=== PATIENT | male | born 1960 | race African-American/Black ===

== ENCOUNTER 2024-03-24 18:32 | Inpatient (IN) | payer BC, MEDICAID, MEDICARE ==
[~2024-03-24] VITALS: Ht 177.8 cm; Wt 102.3 kg
[2024-03-24] MEDS ORDERED: PIPERACILLIN/TAZO 3.375G/50ML 50 ML IV ONE (19:00)
[2024-03-24] MEDS ORDERED: VANCOMYCIN 1G PREMIX 200 ML IV ONE (19:00)
[2024-03-24 19:20] VITALS: RESP 25
[2024-03-24] MEDS: SODIUM CHLORIDE 0.9% (SEPSIS BOLUS) IV ONE (19:27)
[2024-03-24] MEDS ORDERED: NOREPINEPHRINE 8MG/250ML PMX 250 ML IV ONE (19:28)
[2024-03-24 19:30] VITALS: PULSE 75; RESP 18; O2SAT 100
[2024-03-24] MEDS: PROPOFOL 10MG/ML 100ML 100 ML IV STA (20:04)
[2024-03-24] MEDS: NOREPINEPHRINE 8MG/250ML PMX 250 ML IV ONE (20:16)
[2024-03-24 20:23] LABS: HEMOGLOBIN. 15.2 g/dL (14.0-18.0); MEAN CORPUSCULAR HGB CONC 31.7 g/dL (31.0-37.0); MEAN CORPUSCULAR VOLUME 91.6 fL (80.0-94.0); MEAN PLATELET VOLUME 8.6 fl (7.4-10.4); PLATELET 94 x1000/uL (130-400); RED BLOOD CELL COUNT 5.24 mill/uL (4.7-6.1); WHITE BLOOD COUNT 7.3 x1000/uL (4.5-11.0)
[2024-03-24 20:25] LABS: DIFFERENTIAL COMMENT 1
[2024-03-24 20:37] LABS: CHLORIDE 93 mEq/L (98-107); POTASSIUM 5.5 mEq/L (3.5-5.1); SODIUM 132 mEq/L (136-145)
[2024-03-24] MEDS: PIPERACILLIN/TAZO 3.375G/50ML 50 ML IV NR (20:37)
[2024-03-24 20:39] LABS: CALCIUM 7.4 mg/dL (8.7-10.4); CARBON DIOXIDE 25 mEq/L (21-32)
[2024-03-24 20:40] LABS: NUCLEATED RED BLOOD CELLS 5 /100 WBC; PLATELET ESTIMATE SLIGHTLY DECREASED
[2024-03-24 20:44] LABS: GLUCOSE 97 mg/dL (70-105); UREA NITROGEN BLOOD 64 mg/dL (9-23)
[2024-03-24 20:45] LABS: CLARITY URINE TURBID (CLEAR); COLOR URINE DARK YELLOW (YELLOW); GLUCOSE URINE NEGATIVE (NEGATIVE); KETONES URINE NEGATIVE (NEGATIVE); LEUKOCYTE ESTERASE URINE 1+ (NEGATIVE); NITRITE URINE POSITIVE (NEGATIVE); OCCULT BLOOD URINE 1+ (NEGATIVE); PROTEIN URINE 3+ (NEGATIVE)
[2024-03-24 20:46] LABS: ALBUMIN 3.3 g/dL (3.2-4.8); BILIRUBIN DIRECT 2.4 mg/dL (<=3.0); BILIRUBIN TOTAL 3.9 mg/dL (0.1-1.0); PROTEIN TOTAL 5.9 g/dL (6.0-8.3)
[2024-03-24 20:53] LABS: BACTERIA URINE TRACE; HYALINE CASTS URINE 0-5 /lpf; SQUAMOUS EPITHELIAL CELL URINE 1+ /lpf (RARE/1+)
[2024-03-24 20:58] LABS: ALANINE AMINOTRANSFERASE 1562 IU/L (10-49); ASPARTATE AMINOTRANSFERASE 2020 IU/L (<34)
[2024-03-24] MEDS ORDERED: MIDAZOLAM 100MG/100ML PMX 100 ML IV STA (20:58)
[2024-03-24] MEDS ORDERED: FENTANYL 2500MCG/250ML PMX 250 ML IV ONE (21:00)
[2024-03-24 21:15] VITALS: PULSE 74; RESP 18; O2SAT 100
[2024-03-24 21:20] LABS: CREATININE 5.5 mg/dL (0.6-1.3); TROPONIN I HIGH SENSITIVITY 444 ng/L (3.0-53)
[2024-03-24] MEDS: VANCOMYCIN 1GM PMX (XELLIA) 200 ML IV NR (21:27)
[2024-03-24 21:55] LABS: BG BASE EXCESS -4.3 mmol/L (-2.0-3.0); BG DEOXYHEMOGLOBIN 0.7 % (0.0-5.0); BG FRACTION INSPIRED OXYGEN 100; BG METHEMOGLOBIN 0.2 % (0.5-1.5); BG OXYGEN SATURATION 99.3 % (94.0-98.0); BG OXYHEMOGLOBIN 98.1 % (94.0-98.0); BG PCO2 56.7 mmHg (35.0-48.0); BG PH 7.245 (7.350-7.450); BG PO2 186.5 mmHg (83.0-108.0); BG SAMPLE SITE RIGHT BRACHIAL; BG TOTAL HEMOGLOBIN 15.9 g/dL (13.5-17.5); BG TOTAL RESPIRATORY RATE 18 b/min; BG VENT MODE VENT - APRV
[2024-03-24] MEDS: MIDAZOLAM 100MG/100ML PMX 100 ML IV NR (21:56)
[2024-03-24] MEDS ORDERED: VASOPRESSIN 20 UNITS in SODIUM CHLORIDE 0.9% 100 ML IV PRN (22:00)
[2024-03-24] MEDS: SODIUM BICARBONATE 8.4% 50MEQ/50ML SYR IV ONE (22:06)
[2024-03-24] MEDS ORDERED: IPRATROPIUM/ALBUTEROL 0.5-3(2.5)MG/3ML NEB HHN PRN (22:15)
[2024-03-24] MEDS ORDERED: DOCUSATE SODIUM 100MG CAPSULE PO PRN (22:15)
[2024-03-24] MEDS ORDERED: PIPERACILLIN/TAZOBACTAM 3.375 G in DEXTROSE 5% WATER 50 ML IV SCH (22:15)
[2024-03-24] MEDS ORDERED: CLONIDINE 0.1MG TABLET PO PRN (22:15)
[2024-03-24] MEDS ORDERED: ACETAMINOPHEN 650MG SUPP PR PRN ×2 (22:15)
[2024-03-24] MEDS ORDERED: VANCOMYCIN 1G PREMIX 200 ML IV SCH (22:15)
[2024-03-24] MEDS ORDERED: GUAIFENESIN 200MG/10ML SUGAR FREE UDC PO PRN (22:15)
[2024-03-24] MEDS ORDERED: ONDANSETRON HCL 4MG/2ML INJ IV PRN (22:15)
[2024-03-24] MEDS ORDERED: MAGNESIUM/ALUMINUM HYDROXIDE/SIMETHICONE 30ML UDC PO PRN (22:15)
[2024-03-24] MEDS: FENTANYL 2500MCG/250ML PMX 250 ML IV NR (22:22)
[2024-03-24 22:25] LABS: PHOSPHORUS 6.9 mg/dL (2.5-4.9)
[2024-03-24 22:27] LABS: D-DIMER 18.52 mg/L FEU (<0.50); INR 1.9; PARTIAL THROMBOPLASTIN TIME 31.8 sec (23.4-31.0); PROTHROMBIN TIME 20.6 sec (9.6-11.0); TROPONIN I HIGH SENSITIVITY 594 ng/L (3.0-53)
[2024-03-24] MEDS: ASPIRIN 300MG SUPP PR ONE (22:32)
[2024-03-24 23:20] VITALS: PULSE 73; RESP 18; O2SAT 100
[2024-03-24] MEDS: DEXT 5%/LACTATED RINGERS 1,000 ML IV SCH (23:30)
[2024-03-25] VITALS (68 sets, daily range): BP systolic 56–151; BP diastolic 45–111; PULSE 70–100; RESP 9–21; TEMP 36.83628–37.11408; O2SAT 92–100
[2024-03-25] MEDS: ALBUTEROL (0.083%) 2.5MG/3ML NEB HHN ONE (00:28)
[2024-03-25] MEDS ORDERED: ALBUTEROL (0.5%) 2.5MG/0.5ML NEB HHN ONE (00:29)
[2024-03-25] MEDS: VANCOMYCIN 750MG PMX (XELLIA) 150 ML IV NR (01:20)
[2024-03-25] MEDS: PROPOFOL 10MG/ML 100ML 100 ML IV SCH (03:12)
[2024-03-25] MEDS: NOREPINEPHRINE 8MG/250ML PMX 250 ML IV PRN (04:01)
[2024-03-25] MEDS: SODIUM POLYSTYRENE SULFONATE 15 G/60 ML BOT PO NR (04:36)
[2024-03-25 04:59] LABS: HEMATOCRIT. 49.1 % (42.0-52.0); MEAN CORPUSCULAR HGB CONC 32.7 g/dL (31.0-37.0); MEAN CORPUSCULAR VOLUME 88.7 fL (80.0-94.0); MEAN PLATELET VOLUME 8.5 fl (7.4-10.4); PLATELET 94 x1000/uL (130-400); RED BLOOD CELL COUNT 5.53 mill/uL (4.7-6.1); RED CELL DISTRIBUTION WIDTH 15.3 % (11.6-14.6); WHITE BLOOD COUNT 8.7 x1000/uL (4.5-11.0)
[2024-03-25 05:05] LABS: DIFFERENTIAL COMMENT 1
[2024-03-25 05:08] LABS: CHLORIDE 98 mEq/L (98-107); POTASSIUM 4.5 mEq/L (3.5-5.1); SODIUM 135 mEq/L (136-145)
[2024-03-25 05:09] LABS: CALCIUM 7.4 mg/dL (8.7-10.4); CARBON DIOXIDE 32 mEq/L (21-32)
[2024-03-25 05:14] LABS: GLUCOSE 123 mg/dL (70-105); TRIGLYCERIDE 127 mg/dL (0-150); UREA NITROGEN BLOOD 64 mg/dL (9-23)
[2024-03-25 05:15] LABS: CREATINE KINASE MB FRACTION 17.3 ng/mL (0.5-3.6); LDL CHOLESTEROL 48 mg/dL (5-100)
[2024-03-25 05:16] LABS: ALBUMIN 3.4 g/dL (3.2-4.8); CHOLESTEROL 92 mg/dL (<200); HDL CHOLESTEROL < 20 mg/dL (>55); PROTEIN TOTAL 6.1 g/dL (6.0-8.3)
[2024-03-25 05:18] LABS: T4 FREE 1.05 ng/dL (0.89-1.76)
[2024-03-25 05:19] LABS: THYROID STIMULATING HORMONE 2.92 uIU/mL (0.55-4.78)
[2024-03-25 05:27] LABS: ALANINE AMINOTRANSFERASE 2001 IU/L (10-49); ASPARTATE AMINOTRANSFERASE 2449 IU/L (<34)
[2024-03-25 05:41] LABS: PLATELET ESTIMATE NORMAL
[2024-03-25 05:49] LABS: CREATININE 3.7 mg/dL (0.6-1.3)
[2024-03-25] MEDS: IPRATROPIUM/ALBUTEROL 0.5-3(2.5)MG/3ML NEB HHN SCH (07:59)
[2024-03-25 08:19] LABS: BG BASE EXCESS 1.9 mmol/L (-2.0-3.0); BG CARBOXYHEMOGLOBIN 0.5 % (0.5-1.5); BG DEOXYHEMOGLOBIN 3.4 % (0.0-5.0); BG FRACTION INSPIRED OXYGEN 100; BG HCO3 ACT 30.7 mmol/L (21.0-28.0); BG METHEMOGLOBIN 0.2 % (0.5-1.5); BG OXYGEN SATURATION 96.6 % (94.0-98.0); BG OXYHEMOGLOBIN 95.9 % (94.0-98.0); BG PCO2 64.9 mmHg (35.0-48.0); BG PH 7.293 (7.350-7.450); BG SAMPLE SITE LEFT BRACHIAL; BG TOTAL HEMOGLOBIN 17.1 g/dL (13.5-17.5); BG TOTAL RESPIRATORY RATE 18 b/min; BG VENT MODE VENT - AC
[2024-03-25] MEDS: ASPIRIN 81MG EC TABLET PO SCH (09:00)
[2024-03-25] MEDS: PIPERACILLIN/TAZO 3.375G/50ML IV SCH ×2 (09:07→17:08)
[2024-03-25] MEDS: PANTOPRAZOLE SODIUM 40 MG/VIAL IV SCH (09:07)
[2024-03-25] MEDS: ENOXAPARIN 30MG/0.3ML SYR SUBCUT SCH (09:07)
[2024-03-25] MEDS ORDERED: ENOXAPARIN 60MG/0.6ML SYR SUBCUT SCH (12:30)
[2024-03-25 16:11] LABS: CHLORIDE 103 mEq/L (98-107); POTASSIUM 4.3 mEq/L (3.5-5.1); SODIUM 140 mEq/L (136-145)
[2024-03-25 16:12] LABS: CALCIUM 7.8 mg/dL (8.7-10.4); CARBON DIOXIDE 30 mEq/L (21-32)
[2024-03-25 16:16] LABS: CREATINE KINASE MB FRACTION 17.1 ng/mL (0.5-3.6)
[2024-03-25 16:17] LABS: GLUCOSE 137 mg/dL (70-105); UREA NITROGEN BLOOD 35 mg/dL (9-23)
[2024-03-25 16:18] LABS: TROPONIN I HIGH SENSITIVITY 1767 ng/L (3.0-53)
[2024-03-25 16:19] LABS: ALBUMIN 3.2 g/dL (3.2-4.8); BILIRUBIN TOTAL 3.3 mg/dL (0.1-1.0); CREATINE KINASE 320 IU/L (46-171); PROTEIN TOTAL 6.1 g/dL (6.0-8.3)
[2024-03-25 16:30] LABS: ALANINE AMINOTRANSFERASE 1744 IU/L (10-49)
[2024-03-25 16:31] LABS: ASPARTATE AMINOTRANSFERASE 1493 IU/L (<34)
[2024-03-25 16:38] LABS: CREATININE 2.1 mg/dL (0.6-1.3)
[2024-03-25 20:59] LABS: TROPONIN I HIGH SENSITIVITY 1363 ng/L (3.0-53)
[2024-03-25] MEDS: PROPOFOL 10MG/ML 100ML 100 ML IV PRN (22:00)
[2024-03-26] VITALS (96 sets, daily range): BP systolic 73–196; BP diastolic 59–139; PULSE 57–98; RESP 11–23; TEMP 36.16956–37.11408; O2SAT 93–100
[2024-03-26 01:26] LABS: CHLORIDE 103 mEq/L (98-107); POTASSIUM 3.4 mEq/L (3.5-5.1); SODIUM 143 mEq/L (136-145)
[2024-03-26 01:27] LABS: CARBON DIOXIDE 36 mEq/L (21-32)
[2024-03-26 01:28] LABS: CALCIUM 8.1 mg/dL (8.7-10.4)
[2024-03-26 01:32] LABS: CREATININE 1.5 mg/dL (0.6-1.3); GLUCOSE 128 mg/dL (70-105)
[2024-03-26 01:33] LABS: UREA NITROGEN BLOOD 30 mg/dL (9-23)
[2024-03-26 01:34] LABS: ALANINE AMINOTRANSFERASE > 1100 IU/L (10-49); ALBUMIN 3.2 g/dL (3.2-4.8)
[2024-03-26 01:35] LABS: ALBUMIN 3.1 g/dL (3.2-4.8); ASPARTATE AMINOTRANSFERASE 998 IU/L (<34); ASPARTATE AMINOTRANSFERASE 999 IU/L (<34); BILIRUBIN DIRECT 1.9 mg/dL (<=3.0); BILIRUBIN TOTAL 3.1 mg/dL (0.1-1.0); PROTEIN TOTAL 5.8 g/dL (6.0-8.3)
[2024-03-26 01:46] LABS: ALANINE AMINOTRANSFERASE 1454 IU/L (10-49)
[2024-03-26 01:48] LABS: TROPONIN I HIGH SENSITIVITY 1159 ng/L (3.0-53)
[2024-03-26 02:41] LABS: HEPATITIS B SURFACE ANTIGEN NEGATIVE (Negative)
[2024-03-26 03:02] LABS: HEPATITIS A AB IGM NEGATIVE (Negative)
[2024-03-26 03:03] LABS: HEPATITIS B CORE AB IGM NEGATIVE (Negative); HEPATITIS C AB NON REACTIVE (Neg) (Negative)
[2024-03-26 06:44] LABS: HEMATOCRIT 45.6 % (42.0-52.0); HEMOGLOBIN 14.8 g/dL (14.0-18.0); MEAN CORPUSCULAR HEMOGLOBIN 28.8 pg (28.0-32.0); MEAN CORPUSCULAR HGB CONC 32.4 g/dL (31.0-37.0); MEAN CORPUSCULAR VOLUME 88.8 fL (80.0-94.0); PLATELET 84 x1000/uL (130-400); RED BLOOD CELL COUNT 5.14 mill/uL (4.7-6.1); RED CELL DISTRIBUTION WIDTH 15.2 % (11.6-14.6); WHITE BLOOD COUNT 4.8 x1000/uL (4.5-11.0)
[2024-03-26 06:48] LABS: CHLORIDE 104 mEq/L (98-107); POTASSIUM 3.4 mEq/L (3.5-5.1); SODIUM 143 mEq/L (136-145)
[2024-03-26 06:49] LABS: CARBON DIOXIDE 38 mEq/L (21-32)
[2024-03-26 06:54] LABS: CREATININE 1.1 mg/dL (0.6-1.3); GLUCOSE 112 mg/dL (70-105); TRIGLYCERIDE 133 mg/dL (0-150); UREA NITROGEN BLOOD 22 mg/dL (9-23)
[2024-03-26 07:54] LABS: BG BASE EXCESS 11.1 mmol/L (-2.0-3.0); BG CARBOXYHEMOGLOBIN 0.8 % (0.5-1.5); BG FRACTION INSPIRED OXYGEN 60; BG HCO3 ACT 37.8 mmol/L (21.0-28.0); BG METHEMOGLOBIN 0.1 % (0.5-1.5); BG OXYHEMOGLOBIN 96.1 % (94.0-98.0); BG PCO2 56.5 mmHg (35.0-48.0); BG PH 7.443 (7.350-7.450); BG SAMPLE SITE RIGHT RADIAL; BG TOTAL HEMOGLOBIN 15.6 g/dL (13.5-17.5); BG VENT MODE VENT - AC
[2024-03-26] MEDS: ENOXAPARIN 100MG/ML SYR SUBCUT SCH (08:19)
[2024-03-26] MEDS: POTASSIUM CHLORIDE 10MEQ TABLET SR PO NR (08:45)
[2024-03-26] MEDS ORDERED: ENOXAPARIN 40MG/0.4ML SYR SUBCUT SCH (09:00)
[2024-03-26] MEDS ORDERED: ENOXAPARIN 100MG/ML SYR SUBCUT SCH (09:00)
[2024-03-26 10:05] LABS: PHOSPHORUS 1.6 mg/dL (2.5-4.9)
[2024-03-26] MEDS ORDERED: IOHEXOL-350 100 ML BOTTLE ONE (10:06)
[2024-03-26] MEDS: KCL 20MEQ/100ML PREMIX 100 ML IV NR (11:30)
[2024-03-26] MEDS: ENOXAPARIN 40MG/0.4ML SYR SUBCUT SCH (12:00)
[2024-03-26] MEDS: VANCOMYCIN 1.25GM PMX (XELLIA) 250 ML IV SCH (13:11)
[2024-03-26] MEDS ORDERED: LORAZEPAM 1MG TABLET PO PRN (15:15)
[2024-03-26] MEDS: SODIUM PHOSPHATE 15 MMOL in DEXT 5% WATER 245 ML IV NR (16:07)
[2024-03-26] MEDS: DEXMEDETOMIDINE 400 MCG/100 ML 100 ML IV PRN (17:23)
[2024-03-27] VITALS (109 sets, daily range): BP systolic 79–192; BP diastolic 56–178; PULSE 54–89; RESP 8–25; TEMP 36.16956–36.55848; O2SAT 90–100
[2024-03-27] MEDS: FENTANYL 2500MCG/250ML PMX 250 ML IV PRN (05:32)
[2024-03-27] MEDS: POTASSIUM CHLORIDE 20MEQ/PACKET PO NR (06:17)
[2024-03-27 08:10] LABS: BASOPHILS % 0.3 % (0.0-2.0); EOSINOPHILS % 2.8 % (0.0-5.0); HEMATOCRIT. 47.7 % (42.0-52.0); HEMOGLOBIN. 15.1 g/dL (14.0-18.0); LYMPHOCYTES % 7.8 % (20.0-50.0); MEAN CORPUSCULAR HEMOGLOBIN 28.8 pg (28.0-32.0); MEAN CORPUSCULAR HGB CONC 31.7 g/dL (31.0-37.0); MEAN CORPUSCULAR VOLUME 90.7 fL (80.0-94.0); MEAN PLATELET VOLUME 9.7 fl (7.4-10.4); MONOCYTES % 5.8 % (2.0-8.0); NEUTROPHILS % 83.3 % (40.0-76.0); PLATELET 96 x1000/uL (130-400); RED BLOOD CELL COUNT 5.26 mill/uL (4.7-6.1); RED CELL DISTRIBUTION WIDTH 15.9 % (11.6-14.6); WHITE BLOOD COUNT 3.1 x1000/uL (4.5-11.0)
[2024-03-27 08:14] LABS: CARBON DIOXIDE 35 mEq/L (21-32); CHLORIDE 104 mEq/L (98-107); POTASSIUM 3.9 mEq/L (3.5-5.1); SODIUM 144 mEq/L (136-145)
[2024-03-27 08:15] LABS: CALCIUM 8.6 mg/dL (8.7-10.4)
[2024-03-27 08:19] LABS: CREATININE 0.7 mg/dL (0.6-1.3); GLUCOSE 139 mg/dL (70-105)
[2024-03-27 08:20] LABS: UREA NITROGEN BLOOD 12 mg/dL (9-23)
[2024-03-27 08:22] LABS: PHOSPHORUS 2.1 mg/dL (2.5-4.9)
[2024-03-27] MEDS: METHYLPREDNISOLONE SOD SUCC 125MG/2ML (ACT-O-VIAL) IV NR (08:27)
[2024-03-27 09:09] LABS: COMPLEMENT C3 85 mg/dL (82-167); COMPLEMENT C4 22 mg/dL (12-38)
[2024-03-27 09:49] LABS: BG BASE EXCESS 6.2 mmol/L (-2.0-3.0); BG CARBOXYHEMOGLOBIN 0.6 % (0.5-1.5); BG DEOXYHEMOGLOBIN 5.3 % (0.0-5.0); BG FRACTION INSPIRED OXYGEN 40; BG METHEMOGLOBIN 0.3 % (0.5-1.5); BG OXYGEN SATURATION 94.7 % (94.0-98.0); BG OXYHEMOGLOBIN 93.8 % (94.0-98.0); BG PCO2 55.9 mmHg (35.0-48.0); BG PH 7.389 (7.350-7.450); BG PO2 74.2 mmHg (83.0-108.0); BG SAMPLE SITE RIGHT RADIAL; BG TOTAL HEMOGLOBIN 15.4 g/dL (13.5-17.5); BG VENT MODE VENT - AC
[2024-03-27 10:10] LABS: ANTI-NUCLEAR ANTIBODIES DIRECT Negative (Negative)
[2024-03-27] MEDS: POTASSIUM PHOSPHATE 15 MMOL in DEXT 5% WATER 245 ML IV NR (12:10)
[2024-03-27] MEDS: METHYLPREDNISOLONE SOD SUCC 40MG/ML (ACT-O-VIAL) IV SCH (14:14)
[2024-03-27] MEDS ORDERED: VANCOMYCIN 1.25GM PMX (XELLIA) 250 ML IV SCH (15:00)
[2024-03-28] VITALS (95 sets, daily range): BP systolic 87–129; BP diastolic 57–87; PULSE 63–116; RESP 0–28; TEMP 36.28068–37.503; O2SAT 87–100
[2024-03-28] MEDS: METOCLOPRAMIDE HCL 10MG/2ML VIAL IV SCH (06:21)
[2024-03-28 06:22] LABS: HEMATOCRIT. 44.2 % (42.0-52.0); HEMOGLOBIN. 14.3 g/dL (14.0-18.0); MEAN CORPUSCULAR HEMOGLOBIN 28.5 pg (28.0-32.0); MEAN CORPUSCULAR HGB CONC 32.3 g/dL (31.0-37.0); MEAN CORPUSCULAR VOLUME 88.4 fL (80.0-94.0); MEAN PLATELET VOLUME 8.7 fl (7.4-10.4); PLATELET 103 x1000/uL (130-400); RED CELL DISTRIBUTION WIDTH 15.5 % (11.6-14.6); WHITE BLOOD COUNT 7.2 x1000/uL (4.5-11.0)
[2024-03-28] MEDS: BISACODYL 10MG SUPP PR NR (06:30)
[2024-03-28] MEDS ORDERED: POLYETHYLENE GLYCOL 3350 (17GM) 1 DOSE PACK PO SCH (06:30)
[2024-03-28 06:38] LABS: CARBON DIOXIDE 33 mEq/L (21-32); CHLORIDE 105 mEq/L (98-107); SODIUM 142 mEq/L (136-145)
[2024-03-28 06:40] LABS: CALCIUM 8.6 mg/dL (8.7-10.4)
[2024-03-28 06:44] LABS: CREATININE 0.8 mg/dL (0.6-1.3); GLUCOSE 119 mg/dL (70-105)
[2024-03-28 06:45] LABS: UREA NITROGEN BLOOD 10 mg/dL (9-23)
[2024-03-28 06:47] LABS: PHOSPHORUS 1.8 mg/dL (2.5-4.9)
[2024-03-28 06:53] LABS: DIFFERENTIAL COMMENT 1
[2024-03-28] MEDS: POLYETHYLENE GLYCOL 3350 (17GM) 1 DOSE PACK PO SCH (09:37)
[2024-03-28] MEDS: SODIUM PHOSPHATE 15 MMOL in SODIUM CHLORIDE 0.9% 245 ML IV NR (09:37)
[2024-03-28] MEDS: MIDODRINE HCL 5MG TABLET NG SCH (09:38)
[2024-03-28 09:39] LABS: BG BASE EXCESS 4.5 mmol/L (-2.0-3.0); BG DEOXYHEMOGLOBIN 2.9 % (0.0-5.0); BG FRACTION INSPIRED OXYGEN 40; BG HCO3 ACT 32.2 mmol/L (21.0-28.0); BG METHEMOGLOBIN 0.2 % (0.5-1.5); BG OXYGEN SATURATION 97.1 % (94.0-98.0); BG OXYHEMOGLOBIN 95.9 % (94.0-98.0); BG PH 7.347 (7.350-7.450); BG PO2 97.2 mmHg (83.0-108.0); BG SAMPLE SITE RIGHT RADIAL; BG TOTAL HEMOGLOBIN 15.9 g/dL (13.5-17.5); BG VENT MODE VENT - SIMV
[2024-03-28 11:34] LABS: ANISOCYTOSIS 1+; PLATELET ESTIMATE SLIGHTLY DECREASED
[2024-03-29] VITALS (105 sets, daily range): BP systolic 92–134; BP diastolic 58–94; PULSE 58–95; RESP 13–26; TEMP 36.6696–37.00296; O2SAT 83–100
[2024-03-29 06:52] LABS: HEMOGLOBIN. 13.6 g/dL (14.0-18.0); MEAN CORPUSCULAR HEMOGLOBIN 28.5 pg (28.0-32.0); MEAN CORPUSCULAR HGB CONC 32.3 g/dL (31.0-37.0); MEAN CORPUSCULAR VOLUME 88.2 fL (80.0-94.0); MEAN PLATELET VOLUME 8.9 fl (7.4-10.4); PLATELET 123 x1000/uL (130-400); RED BLOOD CELL COUNT 4.76 mill/uL (4.7-6.1); RED CELL DISTRIBUTION WIDTH 15.7 % (11.6-14.6); WHITE BLOOD COUNT 7.9 x1000/uL (4.5-11.0)
[2024-03-29 07:13] LABS: CALCIUM 8.8 mg/dL (8.7-10.4); CHLORIDE 106 mEq/L (98-107); SODIUM 145 mEq/L (136-145)
[2024-03-29 07:14] LABS: CARBON DIOXIDE 36 mEq/L (21-32)
[2024-03-29 07:19] LABS: CREATININE 0.8 mg/dL (0.6-1.3); GLUCOSE 113 mg/dL (70-105); UREA NITROGEN BLOOD 13 mg/dL (9-23)
[2024-03-29 07:44] LABS: DIFFERENTIAL COMMENT 1
[2024-03-29 11:32] LABS: ANISOCYTOSIS 1+
[2024-03-29 11:36] LABS: PLATELET ESTIMATE SLIGHTLY DECREASED
[2024-03-29 19:06] LABS: BG BASE EXCESS 2.7 mmol/L (-2.0-3.0); BG CARBOXYHEMOGLOBIN 1.3 % (0.5-1.5); BG DEOXYHEMOGLOBIN 8.3 % (0.0-5.0); BG FRACTION INSPIRED OXYGEN 40; BG HCO3 ACT 30.3 mmol/L (21.0-28.0); BG METHEMOGLOBIN 0.1 % (0.5-1.5); BG OXYGEN SATURATION 91.6 % (94.0-98.0); BG OXYHEMOGLOBIN 90.3 % (94.0-98.0); BG PCO2 58.9 mmHg (35.0-48.0); BG PH 7.329 (7.350-7.450); BG PO2 66.4 mmHg (83.0-108.0); BG SAMPLE SITE RIGHT RADIAL; BG TOTAL HEMOGLOBIN 15.2 g/dL (13.5-17.5); BG VENT MODE VENT - CPAP
[2024-03-30] VITALS (77 sets, daily range): BP systolic 88–132; BP diastolic 58–102; PULSE 72–108; RESP 15–30; TEMP 36.50292–37.05852; O2SAT 88–100
[2024-03-30 04:47] LABS: CARBON DIOXIDE 34 mEq/L (21-32); CHLORIDE 107 mEq/L (98-107); POTASSIUM 4.6 mEq/L (3.5-5.1); SODIUM 143 mEq/L (136-145)
[2024-03-30 04:48] LABS: CALCIUM 8.8 mg/dL (8.7-10.4)
[2024-03-30 04:53] LABS: CREATININE 0.8 mg/dL (0.6-1.3); GLUCOSE 105 mg/dL (70-105); UREA NITROGEN BLOOD 13 mg/dL (9-23)
[2024-03-30] MEDS ORDERED: HEPARIN 1000 UNITS/ML 10ML ONE (07:08)
[2024-03-30] MEDS ORDERED: VERAPAMIL HCL 2.5 MG/1 ML 2ML VIAL IV ONE (07:08)
[2024-03-30] MEDS ORDERED: IODIXANOL 320MG/ML 100 ML BOTTLE IV ONE (07:09)
[2024-03-30] MEDS ORDERED: LIDOCAINE HCL 1% 20ML VIAL ONE (07:09)
[2024-03-30] MEDS ORDERED: MIDAZOLAM HCL 2 MG/2 ML VIAL ONE (07:44)
[2024-03-30] MEDS ORDERED: FENTANYL CITRATE/PF 50MCG/ML 2ML VIAL ONE (07:44)
[2024-03-30 10:32] LABS: HEMATOCRIT. 45.1 % (42.0-52.0); HEMOGLOBIN. 14.4 g/dL (14.0-18.0); MEAN CORPUSCULAR HEMOGLOBIN 28.5 pg (28.0-32.0); MEAN CORPUSCULAR HGB CONC 31.9 g/dL (31.0-37.0); MEAN CORPUSCULAR VOLUME 89.2 fL (80.0-94.0); MEAN PLATELET VOLUME 8.1 fl (7.4-10.4); PLATELET 142 x1000/uL (130-400); RED BLOOD CELL COUNT 5.05 mill/uL (4.7-6.1); RED CELL DISTRIBUTION WIDTH 15.3 % (11.6-14.6); WHITE BLOOD COUNT 7.8 x1000/uL (4.5-11.0)
[2024-03-30 10:36] LABS: DIFFERENTIAL COMMENT 1
[2024-03-30] MEDS: IPRATROPIUM/ALBUTEROL 0.5-3(2.5)MG/3ML NEB HHN SCH (12:47)
[2024-03-30] MEDS: BUDESONIDE 0.5MG/2ML NEB HHN SCH (12:48)
[2024-03-30 16:06] LABS: ANISOCYTOSIS 1+; PLATELET ESTIMATE NORMAL
[2024-03-31] VITALS (27 sets, daily range): BP systolic 102–135; BP diastolic 61–89; PULSE 81–119; RESP 11–35; TEMP 36.50292–37.05852; O2SAT 84–100
[2024-03-31 12:57] LABS: CARBON DIOXIDE 37 mEq/L (21-32); CHLORIDE 103 mEq/L (98-107); POTASSIUM 4.7 mEq/L (3.5-5.1); SODIUM 142 mEq/L (136-145)
[2024-03-31 13:02] LABS: CREATININE 0.8 mg/dL (0.6-1.3); GLUCOSE 106 mg/dL (70-105)
[2024-03-31 13:03] LABS: UREA NITROGEN BLOOD 13 mg/dL (9-23)
[2024-03-31 13:04] LABS: ALANINE AMINOTRANSFERASE 479 IU/L (10-49); ASPARTATE AMINOTRANSFERASE 114 IU/L (<34); HEMATOCRIT. 49.3 % (42.0-52.0); HEMOGLOBIN. 15.4 g/dL (14.0-18.0); MEAN CORPUSCULAR HEMOGLOBIN 28.3 pg (28.0-32.0); MEAN CORPUSCULAR HGB CONC 31.2 g/dL (31.0-37.0); MEAN CORPUSCULAR VOLUME 90.6 fL (80.0-94.0); MEAN PLATELET VOLUME 8.8 fl (7.4-10.4); PLATELET 161 x1000/uL (130-400); RED BLOOD CELL COUNT 5.44 mill/uL (4.7-6.1); RED CELL DISTRIBUTION WIDTH 15.8 % (11.6-14.6); WHITE BLOOD COUNT 8.2 x1000/uL (4.5-11.0)
[2024-03-31 13:05] LABS: ALBUMIN 3.2 g/dL (3.2-4.8); BILIRUBIN TOTAL 1.2 mg/dL (0.1-1.0); PROTEIN TOTAL 5.9 g/dL (6.0-8.3)
[2024-03-31 13:08] LABS: DIFFERENTIAL COMMENT 1
[2024-03-31 16:55] LABS: PLATELET ESTIMATE NORMAL
[2024-04-01] VITALS (18 sets, daily range): BP systolic 104–124; BP diastolic 66–79; PULSE 74–107; RESP 17–26; TEMP 36.28068–37.16964; O2SAT 87–99
[2024-04-01 00:09] LABS: BG BASE EXCESS 6.5 mmol/L (-2.0-3.0); BG CARBOXYHEMOGLOBIN 1.1 % (0.5-1.5); BG DEOXYHEMOGLOBIN 20.6 % (0.0-5.0); BG HCO3 ACT 35.5 mmol/L (21.0-28.0); BG METHEMOGLOBIN 0.1 % (0.5-1.5); BG OXYGEN SATURATION 79.1 % (94.0-98.0); BG OXYHEMOGLOBIN 78.2 % (94.0-98.0); BG PCO2 69.1 mmHg (35.0-48.0); BG PH 7.329 (7.350-7.450); BG PO2 42.8 mmHg (83.0-108.0); BG TOTAL HEMOGLOBIN 16.8 g/dL (13.5-17.5)
[2024-04-01] MEDS: FUROSEMIDE 40MG/4ML VIAL IVP NR (02:23)
[2024-04-01 05:11] LABS: BG BASE EXCESS 8.8 mmol/L (-2.0-3.0); BG DEOXYHEMOGLOBIN 3.2 % (0.0-5.0); BG FRACTION INSPIRED OXYGEN 60; BG HCO3 ACT 36.8 mmol/L (21.0-28.0); BG METHEMOGLOBIN 0.1 % (0.5-1.5); BG OXYGEN SATURATION 96.8 % (94.0-98.0); BG OXYHEMOGLOBIN 95.7 % (94.0-98.0); BG PCO2 63.9 mmHg (35.0-48.0); BG PH 7.378 (7.350-7.450); BG SAMPLE SITE RIGHT BRACHIAL; BG TOTAL HEMOGLOBIN 15.8 g/dL (13.5-17.5); BG VENT MODE MASK - BIPAP
[2024-04-02] VITALS (17 sets, daily range): BP systolic 101–132; BP diastolic 63–88; PULSE 68–102; RESP 9–29; TEMP 36.44736–37.00296; O2SAT 90–97
[2024-04-02 09:24] LABS: HEMATOCRIT. 47.3 % (42.0-52.0); HEMOGLOBIN. 14.5 g/dL (14.0-18.0); MEAN CORPUSCULAR HEMOGLOBIN 27.1 pg (28.0-32.0); MEAN CORPUSCULAR HGB CONC 30.7 g/dL (31.0-37.0); MEAN CORPUSCULAR VOLUME 88.4 fL (80.0-94.0); MEAN PLATELET VOLUME 8.3 fl (7.4-10.4); PLATELET 223 x1000/uL (130-400); RED BLOOD CELL COUNT 5.35 mill/uL (4.7-6.1); RED CELL DISTRIBUTION WIDTH 15.2 % (11.6-14.6); WHITE BLOOD COUNT 8.2 x1000/uL (4.5-11.0)
[2024-04-02 09:34] LABS: DIFFERENTIAL COMMENT 1
[2024-04-02 09:42] LABS: CHLORIDE 99 mEq/L (98-107); POTASSIUM 4.2 mEq/L (3.5-5.1); SODIUM 141 mEq/L (136-145)
[2024-04-02 09:43] LABS: CALCIUM 9.2 mg/dL (8.7-10.4)
[2024-04-02 09:48] LABS: CREATININE 0.7 mg/dL (0.6-1.3); GLUCOSE 104 mg/dL (70-105); UREA NITROGEN BLOOD 11 mg/dL (9-23)
[2024-04-02 09:51] LABS: CARBON DIOXIDE > 40 mEq/L (21-32)
[2024-04-02] MEDS: LACTATED RINGERS 1,000 ML IV SCH (12:27)
[2024-04-02] MEDS ORDERED: ASPI-1406 PO (16:12)
[2024-04-02] MEDS ORDERED: METH4TAB95 MT (16:30)
[2024-04-02] MEDS ORDERED: ALBU05 NEB (16:30)
[2024-04-03 15:44] LABS: ANISOCYTOSIS 1+; PLATELET ESTIMATE NORMAL
[2024-04-07] MEDS ORDERED: ALBU18HF2 IH (08:52)
[2024-04-07] MEDS ORDERED: P20 MT (08:52)
[2024-04-07] MEDS ORDERED: FLUT1DIS3 INH (08:52)
== END 2024-04-02 21:30 | disposition home or self-care (01) | DRG 870 ==
LOC: ER 18:32 → CVICU 21:37 → EDBEDREQTM 21:49 → EDBEDREQ 21:49 → 5EST 03-31 05:25
PROVIDERS: ADMIT Hospitalist; ATTEND Hospitalist
PROC: 5A1955Z Respiratory Ventilation, Greater than 96 Consecutive Hours (ICD-10-PCS; principal; 2024-03-24)
PROC: 0BH17EZ Insertion of Endotracheal Airway into Trachea, Via Natural or Artificial Opening (ICD-10-PCS; 2024-03-24)
PROC: 06HY33Z Insertion of Infusion Device into Lower Vein, Percutaneous Approach (ICD-10-PCS; 2024-03-24)
PROC: B54BZZA Ultrasonography of Right Lower Extremity Veins, Guidance (ICD-10-PCS; 2024-03-24)
PROC: 5A09357 Assistance with Respiratory Ventilation, Less than 24 Consecutive Hours, Continuous Positive Airway Pressure (ICD-10-PCS; 2024-03-24)
PROC: B2111ZZ Fluoroscopy of Multiple Coronary Arteries using Low Osmolar Contrast (ICD-10-PCS; 2024-03-30)
PROC: B2151ZZ Fluoroscopy of Left Heart using Low Osmolar Contrast (ICD-10-PCS; 2024-03-30)
PROC: 4A023N8 Measurement of Cardiac Sampling and Pressure, Bilateral, Percutaneous Approach (ICD-10-PCS; 2024-03-30)
PROC: 0BP1XDZ Removal of Intraluminal Device from Trachea, External Approach (ICD-10-PCS; 2024-03-30)
PROC: 5A09357 Assistance with Respiratory Ventilation, Less than 24 Consecutive Hours, Continuous Positive Airway Pressure (ICD-10-PCS; 2024-04-01)
DX: A41.9 Sepsis, unspecified organism (principal); J96.01 Acute respiratory failure with hypoxia; K72.00 Acute and subacute hepatic failure without coma; R65.21 Severe sepsis with septic shock; I21.4 Non-ST elevation (NSTEMI) myocardial infarction; R57.0 Cardiogenic shock; G93.41 Metabolic encephalopathy; E87.1 Hypo-osmolality and hyponatremia; E87.20 Acidosis, unspecified; N17.9 Acute kidney failure, unspecified; N39.0 Urinary tract infection, site not specified; J44.0 Chronic obstructive pulmonary disease with (acute) lower respiratory infection; J98.11 Atelectasis; I13.0 Hypertensive heart and chronic kidney disease with heart failure and stage 1 through stage 4 chronic kidney disease, or unspecified chronic kidney disease; D68.9 Coagulation defect, unspecified; Z20.822 Contact with and (suspected) exposure to COVID-19; E87.6 Hypokalemia; J43.9 Emphysema, unspecified; E83.39 Other disorders of phosphorus metabolism; E87.5 Hyperkalemia; D69.6 Thrombocytopenia, unspecified; N13.9 Obstructive and reflux uropathy, unspecified; N18.30 Chronic kidney disease, stage 3 unspecified; I27.21 Secondary pulmonary arterial hypertension; I50.810 Right heart failure, unspecified; I27.29 Other secondary pulmonary hypertension; I45.10 Unspecified right bundle-branch block; K59.00 Constipation, unspecified; Z79.82 Long term (current) use of aspirin; Z91.148 Patient's other noncompliance with medication regimen for other reason
CPT/HCPCS: 36415; 36600; 71045; 71275; 76770; 78580; 80048; 80053; 80061; 80076; 80202; 81003; 82375; 82550; 82553; 82805; 82962; 83605; 83735; 83880; 84100; 84145; 84146; 84439; 84443; 84478; 84481; 84484; 85025; 85027; 85379; 86038; 86160; 86705; 86709; 87070; 87340; 87426; 87804; 92610; 93005; 93306; 93460; 93970; 94003; 94640; 94660; 97162; 97166; 99291; C1769; C1887; C1893; J1644; J1650; J1940; J2250; J2470; J2543; J2704; J2765; J2919; J2920; J3010; J3370; J3480; J3490; J7030; J7050; J7060; J7120; J7626; Q9957; Q9967